=== PATIENT | female | born 1965 | race Caucasian/White ===

== ENCOUNTER 2019-06-22 11:10 | Emergency (ER) | payer OTHER, SELFPAY ==
[~2019-06-22] VITALS: Ht 172.7 cm; Wt 67.9 kg
[2019-06-22] MEDS ORDERED: LORazepam 1MG TABLET PO ONE (11:30)
[2019-06-22] MEDS ORDERED: LORazepam 1MG TABLET ONE (11:43)
--- NOTE | 2019-06-22 11:49 | NUR ---
PT RESTING IN [facility], MEDICATED PER MAR. FAMILY AT BEDSIDE. URINE WALKED TO LAB. AWAITING LAB RESULTS. CALL LIGHT WITHIN REACH.
[2019-06-22 11:52] LABS: BASOPHILS # (AUTO) 0.02 x10^3/uL (0-0.1); BASOPHILS % (AUTO) 0 % (0-1); EOSINOPHILS # (AUTO) 0.02 x10^3/uL (0-0.4); EOSINOPHILS % (AUTO) 0 % (1-7); LYMPHOCYTES # (AUTO) 1.31 x10^3/uL (1-3.4); LYMPHOCYTES % (AUTO) 12 % (22-44); MD NO; MEAN CORPUSCULAR HEMOGLOBIN 30.4 pg (27.0-34.8); MEAN CORPUSCULAR HGB CONC 33.2 g/dL (32.4-35.8); MEAN CORPUSCULAR VOLUME 91.7 fL (80-100); MEAN PLATELET VOLUME 7.7 fL (7.4-10.4); MONOCYTES # (AUTO) 0.46 x10^3/uL (0.2-0.8); MONOCYTES % (AUTO) 4 % (2-9); NEUTROPHILS # (AUTO) 9.42 x10^3/uL (1.8-6.8); NEUTROPHILS % (AUTO) 84 % (42-75); PLATELET COUNT 359 x10^3/uL (130-400); RED BLOOD COUNT 5.02 x10^6/uL (3.82-5.3); RED CELL DISTRIBUTION WIDTH 16.4 % (9.6-15.2)
[2019-06-22 12:00] LABS: HCG UR SG 1.018 (1.003-1.030)
[2019-06-22 12:03] LABS: ALBUMIN 3.9 g/dL (3.4-5.0); ANION GAP 8 mmol/L (5-15); CHLORIDE 112 mmol/L (98-107); CREATININE 0.57 mg/dL (0.55-1.02); SALICYLATE LEVEL 4.6 mg/dL (2.8-20.0)
[2019-06-22 12:10] LABS: AMPHETAMINE SCREEN, URINE Negative (Negative); BARBITURATE SCREEN, URINE Negative (Negative); BENZODIAZEPINE SCREEN, URINE Negative (Negative); CANNABINOID SCREEN, URINE Positive (Negative); COCAINE SCREEN, URINE Negative (Negative); METHADONE SCREEN, URINE Negative (Negative); OPIATE SCREEN, URINE Negative (Negative)
--- NOTE | 2019-06-22 13:03 | NUR ---
RN RETURNED FROM BREAK, PSYCH SAW PT AND PT PLACED ON LEGAL HOLD FOR SI. PT MOVED TO ROOM 41 WITH SITTER. REPORT TO ELLEN ALBERT WHO WILL ASSUME CARE OF PT AT THIS TIME. ALL BELONGINGS REMOVED AND PLACED IN PSYCH LOCKER BY FRED Spoonity.
--- NOTE | 2019-06-22 13:23 | NUR ---
1ST CONTACT C PT. RESTING ON CART. A&04. CALM & COOPERATIVE. FAMILY AT BS. GIVEN WATER & BLANKET, AWARE LUNCH TRAY ORDERED. DENIES ANY OTHER NEEDS. WILL CTM.
--- NOTE | 2019-06-22 13:51 | NUR ---
THROUGHPUT: PT ON LEGAL HOLD, MEDICALLY CLEARED, NO INSURANCE. FAXED MEDICALS TO [facility]. RECEIVED FAX CONFIRMATION
[2019-06-22] MEDS ORDERED: QUETIAPINE 25MG TABLET ONE (13:55)
[2019-06-22] MEDS: QUETIAPINE 25MG TABLET PO SCH (13:56)
--- NOTE | 2019-06-22 14:06 | NUR ---
GIVEN LUNCH TRAY. JULIUS FAMILY MEMBERS AT BS. CALM & COOPERATIVE. WILL CTM.
--- NOTE | 2019-06-22 14:09 | NUR ---
SITTER OUTSIDE OF ROOM
--- NOTE | 2019-06-22 15:23 | NUR ---
PT BECOMING ESPECIALLY NEEDY AFTER FAMILY LEAVING, AND WANDERING OUT INTO [place] [address]. REQUESTNG TO USE THE PHONE & WANTING SHOWER... ATTEMPTING TO EXPLAIN PROCE3
--- NOTE | 2019-06-22 15:33 | NUR ---
PT APPEARS TO BE SLEEPING, ON CART. RR EVEN NON LABORED. SITTER OUTSIDE OF ROOM. WILL CTM.
--- NOTE | 2019-06-22 15:58 | NUR ---
PT REQUESTING TO SEE MD, IN PARTICULAR, WANTS AN IV FOR HER JOINT PAIN & DRY SKIN. PT ENCOURAGED TO DRINK WATER.
--- NOTE | 2019-06-22 17:23 | NUR ---
DIET TRAY ORDERED. REQUESTING MOTRIN/TYL FOR H/A.
[2019-06-22] MEDS ORDERED: IBUPROFEN 600 MG TABLET ONE (17:27)
[2019-06-22] MEDS ORDERED: IBUPROFEN 600 MG TABLET PO ONE (17:30)
--- NOTE | 2019-06-22 18:04 | NUR ---
GIVEN DINNER TRAY & WATER & EXTRA BLANKET. DENIES ANY OTHER NEEDS. CALM & COOPERATIVE. SITTER REMAINS OUTSIDE OF ROOM. WILL CTM.
--- NOTE | 2019-06-22 18:26 | NUR ---
PT TO END OF HALLWAY TO USE PHONE, STEADY GAIT. INSIGHT OF SITTER.
--- NOTE | 2019-06-22 19:09 | NUR ---
PT UP TO PHONE C STEADY GAIT, REMAINS IN VIEW OF SITTER. DENIES ANY NEEDS. AMBULATORY BACK TO ROOM, WATCHING TV. DENIES ANY NEEDS. WILL CTM.
--- NOTE | 2019-06-22 20:33 | NUR ---
PT GIVEN WATER & COFFEE. DENIES ANY OTHER NEEDS. VSS. SITTER REMAINS OUTSIDE OF ROOM.
[2019-06-22] MEDS: QUETIAPINE 200 MG TABLET PO SCH (20:35)
--- NOTE | 2019-06-22 20:50 | NUR ---
FAMILY BROUGHT PT BODY WASH, LOTION, UNDERWEAR FOR LATER USAGE..TO BE PLACED IN PTS BELONGING BAG IN LOCKER. ALL OTHER ITEMS THEY TILA TO BE TAKEN HOME. PT ALSO GIVEN OUTSIDE FOOD. CALM & APPROPRIATE C FAMILY AT BS. SITTER REMAINS OUTSIDE OF ROOM. WILL CTM.
--- NOTE | 2019-06-22 21:24 | NUR ---
PT STATES SHE SOILED HERSELF. GIVEN CLEAN GOWN & SOCKS. FAMILY LEFT PT C FUZZY SWEATER, PT INFORMED SHE IS NOT TO HAVE ANY BELONGINS, PLACED IN BAG & TIED TOGETHER C OTHER BELONGINGS IN LOCKER. TOTAL 3 BAGS.
--- NOTE | 2019-06-22 23:27 | NUR ---
PT RESTING ON CART, WATCHING TV. RR EVEN NON LABORED. PT C/O RLQ PAIN. N/V/D. PT TOLERATING FOOD & DRINKS WELL. SITTER REMAINS OUTSIDE OF ROOM. WILL CTM.
--- NOTE | 2019-06-23 00:09 | NUR ---
PT RESTING CALMLY WATCHING TV,, ROOM SECURED, SITTER AT DOORWAY FOR CONTINOUS MONITORING.
--- NOTE | 2019-06-23 00:57 | NUR ---
PT RESTING WITH EYES CLOSED, NAD, EQUAL CHEST RISE/FALL OBSERVED, SITTER AT DOORWAY FOR CONTINOUS MONITORING.
--- NOTE | 2019-06-23 01:58 | NUR ---
PT RESTING ON GURNEY WITH EYES CLOSED, NADN, EQUAL CHEST RISE/FALL OBSERVED, ROOM SECURED, SITTER AT DOORWAY FOR CONTINOUS MONITORING.
--- NOTE | 2019-06-23 03:02 | NUR ---
PT RESTING WITH EYES CLOSED, REPOSITIONED SELF IN BED, EQUAL CHEST RISE/FALL OBSERVED, SITTER AT DOORWAY FOR CONTINOUS MONITORING.
--- NOTE | 2019-06-23 04:08 | NUR ---
PT RESTING WITH EYES CLOSED, NAD, REPOSITIONED SELF, NOTED EQUAL CHEST RISE/FALL, SITTER AT DOORWAY FOR CONTINOUS MONITORING.
--- NOTE | 2019-06-23 04:59 | NUR ---
PT RESTING CALMLY, NADN, EQUAL CHEST RISE/FALL OBSERVED, SITTER AT DOORWAY FOR CONTINOUS MONITORING
--- NOTE | 2019-06-23 06:04 | NUR ---
PT RESTING CALMY, REPOSITIONED SELF, EQUAL CHEST RISE/FALL OBSERVED, SITTER AT DOORWAY FOR CONTINOUS MONITORING.
--- NOTE | 2019-06-23 06:51 | NUR ---
RECEIVED REPORT FROM EMMA ALBERT, PLAN OF CARE DISCUSSED.
--- NOTE | 2019-06-23 07:08 | NUR ---
PT SLEEPING, RESP EVEN AND UNLABORED, BREAKFAST ORDERED, ROOM SECURED, SITTER AT DOOR.
--- NOTE | 2019-06-23 07:47 | NUR ---
BREAKFAST GIVEN, PT PLACED ON HOSPTIAL BED. PT REQUESTED WATER AND COFFEE WELL, THIS RN PROVIDED. PT TEARFUL AT THIS TIME, INCREASE EMOTIONAL SUPPORT GIVEN. ROOM REMAINS SECURED, SITTER AT DOOR
[2019-06-23] MEDS ORDERED: QUETIAPINE 25MG TABLET ONE (08:05)
[2019-06-23] MEDS: QUETIAPINE 25MG TABLET PO SCH (08:07)
[2019-06-23] MEDS ORDERED: IBUPROFEN 600 MG TABLET ONE (08:25)
[2019-06-23] MEDS ORDERED: IBUPROFEN 600 MG TABLET PO ONE (08:30)
--- NOTE | 2019-06-23 08:32 | NUR ---
PT ATE 100% BREAKFAST REQUESTED MOTRIN FOR ALL OVER PAIN, RECEIVED ORDER AND MEDICATED PER SEP. PT VERBALIZED NO OTHER NEEDS AT THIS TIME
--- NOTE | 2019-06-23 09:41 | NUR ---
PT SLEEPING, RESP EVEN AND UNLABORED, ROOM REMAINS SECURED, SITTER AT DOOR.
--- NOTE | 2019-06-23 11:34 | NUR ---
PT UP TO THE PHONE IN HALLWAY CALLING BACK WHO CALLED 20MIN WHILE PATIENT WAS SLEEPING
--- NOTE | 2019-06-23 12:08 | NUR ---
LUNCH MEAL PROVIDED, PT UP TO BATHROOM, ROOM REMAINS SECURED. SITTER AT DOOR
--- NOTE | 2019-06-23 14:04 | NUR ---
PT AT 100% BREAKFAST, RESTING, ROOM REMAINS SECURED. SITTER AT DOOR
--- NOTE | 2019-06-23 15:28 | NUR ---
PT SLEEPING, RESP EVEN AND UNLABORED, SITTER AT DOOR, ROOM REMAINS SECURED
--- NOTE | 2019-06-23 17:40 | NUR ---
MEAL PROVIDED, SON AT BS. PT COOPERATIVE, ROOM SECURED AND SITTER AT DOOR
--- NOTE | 2019-06-23 18:46 | NUR ---
REPORT TO KATLIN ALBERT, PLAN OF CARE DISCUSSED
--- NOTE | 2019-06-23 20:00 | NUR ---
PT RESTING ON GURNEY. RESPIRATIONS EVEN AND UNLABORED. SITTER AT DOORWAY FOR FREQUENT CHECKS.
[2019-06-23] MEDS ORDERED: QUETIAPINE 100MG TABLET ONE (21:29)
[2019-06-23] MEDS: QUETIAPINE 200 MG TABLET PO SCH (21:42)
--- NOTE | 2019-06-23 21:46 | NUR ---
PT MEDICATED PER EMAR. PT WITH NO REQUESTS AT THIS TIME. SITTER AT DOORWAY.
--- NOTE | 2019-06-24 00:17 | NUR ---
PT RESTING ON GURNEY WITH EYES CLOSED. RESPIRATIONS EVEN AND UNLABORED. SITTER AT DOORWAY FOR FREQUENT CHECKS.
--- NOTE | 2019-06-24 03:07 | NUR ---
PT RESTING ON GURNEY WITH EYES CLOSED. RESPIRATIONS EVEN AND UNLABORED. SITTER AT DOORWAY FOR FREQUENT CHECKS.
--- NOTE | 2019-06-24 06:16 | NUR ---
PT RESTING ON GURNEY WITH EYES CLOSED. RESPIRATIONS EVEN AND UNLABORED. SITTER AT DOORWAY FOR FREQUENT CHECKS
--- NOTE | 2019-06-24 06:52 | NUR ---
report to kiet pinzon
--- NOTE | 2019-06-24 07:05 | NUR ---
REPORT RECIEVED FROM DESTINI RN, ASSUMED CARE OF PT. AT THIS TIME PT IS RESTING ON GURNEY ASLEEP, VISIBLE CHEST RISE AND FALL NOTED, NAD AT THIS TIME
[2019-06-24] MEDS: QUETIAPINE 25MG TABLET PO SCH ×2 (07:54→12:14)
--- NOTE | 2019-06-24 07:59 | NUR ---
PT GIVEN BREAKFAST TRAY. MEDICATED PER SEP. SI PRECAUTIONS ARE IN PLACE, NO OTHER NEEDS AT THIS TIME
--- NOTE | 2019-06-24 10:16 | NUR ---
PT RESTING ON BED IN RM AT THIS TIME, VISIBLE CHEST RISE AND FALL NOTED. NAD NOTED
--- NOTE | 2019-06-24 11:46 | NUR ---
PT AMULATED TO PHONE IN [place], ALLOWED PT TO MAKE PHONE CALL, PT WITH STEADY GAIT. LUNCH TRAYS ORDERED
[2019-06-24] MEDS ORDERED: QUETIAPINE 25MG TABLET ONE (12:12)
[2019-06-24] MEDS ORDERED: IBUPROFEN 600 MG TABLET ONE ×2 (12:12→19:55)
[2019-06-24] MEDS ORDERED: IBUPROFEN 200 MG TABLET ONE (12:16)
[2019-06-24] MEDS ORDERED: IBUPROFEN 200 MG TABLET PO ONE ×2 (12:30→20:00)
--- NOTE | 2019-06-24 12:43 | NUR ---
BREAK RN NOTE: PT PROVIDED WITH SI MEAL TRAY. VS REASSESSED. PT REPORTS SHE HAS HAD A HEADACHE SINCE THIS AM, STATES SHE HAS HX HEADACHES, THIS FEELS LIKE A TYPICAL HEADACHE. PT IS A&OX4, RESPS EVEN AND UNLABORED. MD AHN NOTIFIED, MD ORDERED MOTRIN. PT MEDICATED PER EMAR, TOLERATED WELL. AT BEDSIDE WITH PT OK, PT NOTES IS A THERAPEUTIC PRESENCE. PT AND UPDATED WITH POC. SITTER MONITORING FROM [facility] FOR [facility], ROOM REMAINS SECURE. REPORT GIVEN TO PRIMARY RN MEGHAN.
[2019-06-24] MEDS ORDERED: MAGNESIUM CITRATE 300ML ORAL SOL PO ONE (13:30)
[2019-06-24] MEDS ORDERED: MAGNESIUM CITRATE 300ML ORAL SOL ONE (13:35)
--- NOTE | 2019-06-24 13:54 | NUR ---
PT STILL UNABLE TO HAVE BM. PT REQUESTING LAXATIVE, ORDER RECIEVED BY MARIANGEL, PT MEDICATED PER SEP. GIVEN WARM BLANKET FOR COMFORT, NO OTHER NEEDS AT THIS TIME
--- NOTE | 2019-06-24 15:59 | NUR ---
PT CONTINUES TO REST ON BED, DENIES NEEDS AT THIS TIME, DIET TRAY ORDERED
--- NOTE | 2019-06-24 17:59 | NUR ---
PT GIVEN DINNER TRAY. NO OTHER NEEDS STATED AT THIS TIME. NAD. SI PRECAUTIONS REMAIN IN PLACE.
--- NOTE | 2019-06-24 18:00 | NUR ---
PT GIVEN DINNER TRAY. NO OTHER NEEDS EXPRESSED, NAD NOTED. SI PRECAUTIONS REMAIN IN PLACE
--- NOTE | 2019-06-24 18:08 | NUR ---
REPORT CALLED TO CENTRALIZED TRAFFIC CONTROL OPERATOR
--- NOTE | 2019-06-24 19:50 | NUR ---
pt requesting motrin for headache, erp updated and will place order
[2019-06-24] MEDS ORDERED: QUETIAPINE 100MG TABLET ONE (19:55)
--- NOTE | 2019-06-24 19:59 | NUR ---
late entry 1914- pt resting in bed watching tv, denies needs at thsi time, sitter at doorway for continous monitoring
[2019-06-24] MEDS: QUETIAPINE 200 MG TABLET PO SCH (20:02)
--- NOTE | 2019-06-24 20:17 | NUR ---
pt stated she currently has no si/hi thoughts. pt medicated per sep. pt up to rr with steady gait, incontinent of bm, assisted pt with cleaning bathroom toliet and floor, provided pt with cleaning supplies for self care, pt denies further needs at thsi time. sitter at doorway for continous monitoring
--- NOTE | 2019-06-24 21:26 | NUR ---
pt sitting up in bed watching tv, denies needs, sitter at doorway for continous monitoring
--- NOTE | 2019-06-24 22:17 | NUR ---
PT RESTING IN BED WITH EYES CLOSED, NADN, RESPIRATIONS EVEN AND UNLABORED, ROOM REMAINS SECURED, SITTER IN [place] FOR MONITORING.
--- NOTE | 2019-06-24 23:01 | NUR ---
PT RESTING IN BED WITH EYES CLOSED, NAD, RESPIRATIONS EVEN AND UNLABORED, SITTER IN [place] FOR MONITORING.
--- NOTE | 2019-06-25 | NUR ---
PT RESTING ON GURNEY WITH EYES CLOSED, NADN, RESPIRATIONS EVEN AND UNLABORED, SITTER IN [place] FOR MONITORING.
--- NOTE | 2019-06-25 01:17 | NUR ---
PT RESTING ON GURNEY WITH EYES CLOSED, RESPIRATIONS EVEN AND UNLABORED, SITTER IN [place] FOR MONITORING.
--- NOTE | 2019-06-25 02:29 | NUR ---
FLOAT RN: PT RESTING IN ROOM. REGULAR RESP. NO ACUTE DISTRESS NOTED. WILL CONTINUE TO MONITOR WHILE PRIMARY RN IS ON BREAK.
--- NOTE | 2019-06-25 02:57 | NUR ---
PT RESTING IN BED WITH EYES CLOSED, NAD, EQUAL CHEST RISE/FALL OBSERVED, SITTER IN [place] FOR CONTINOUS MONITORING.
--- NOTE | 2019-06-25 04:15 | NUR ---
PT RESTING IN BED WITH EYES CLOSED, NAD, RESPIRATIONS EVEN AND UNLABORED, SITTER IN [place] FOR CONTINOUS MONITORING.
--- NOTE | 2019-06-25 05:07 | NUR ---
PT RESTING IN BED WITH EYES CLOSED, REPOSITIONED SELF IN BED, EQUAL CHEST RISE/FALL OBSERVED, SITTER IN [place] FOR CONTINOUS MONITORING.
--- NOTE | 2019-06-25 06:25 | NUR ---
PT RESTING IN BED WITH EYES CLOSED, NAD, RESPIRATIONS EVEN AND UNLABORED, SITTER IN [place] FOR CONTINOUS MONITORING.
--- NOTE | 2019-06-25 07:58 | NUR ---
LATE ENTRY 0700. SBAR RPT REC'D FROM BETY VARELA AND ASSUMED PT CARE. PT CURRENTLY SLEEPING, RESP EVEN NON-LABORED. SITTER AT DOORWAY WITH PT IN VIEW.
[2019-06-25] MEDS ORDERED: QUETIAPINE 25MG TABLET ONE ×2 (08:36→12:10)
[2019-06-25] MEDS: QUETIAPINE 25MG TABLET PO SCH ×2 (08:37→12:12)
--- NOTE | 2019-06-25 08:38 | NUR ---
BREAKFAST TRAY PROVIDED AND PT ATE 100%. PT MED WITH AM MEDS NOTED AND PT AMBULATED TO PHONE IN HALLWAY TO CALL HER . SITTER IN HALLWAY WITH PT IN SIGHT.
--- NOTE | 2019-06-25 11:58 | NUR ---
PT OOB AND AMBULATE TO SHOWER ROOM. CLEAN GOWN AND SOCKS PROVIDED. SITTER WITH SHOWER ROOM IN VIEW. COMPLETE LINEN CHANGE OF BED.
[2019-06-25] MEDS ORDERED: IBUPROFEN 200 MG TABLET PO ONE (12:30)
--- NOTE | 2019-06-25 12:30 | NUR ---
PTS IN ROOM, PT GIVEN LUNCH TRAY AND MED NOTED. NAD NOTED.
--- NOTE | 2019-06-25 13:07 | NUR ---
LATE ENTRY FOR 1220 PT COMPLETED SHOWER, WHEN THIS RN ENTERED SHOWER ROOM PT RPT THAT SHE HAD FALLEN ON HER LEFT HIP. DENIED HITTING HER HEAD. PT AMBULATORY WITH STEADY GAIT BACK TO ROOM. HAD PT CHANGE INTO A YELLOW GOWN, SOCKS AND FALLS RISK BAND PLACED. DR. MULLEN INFORMED, ORDER REC'D FOR IBUPROFEN
[2019-06-25] MEDS ORDERED: IBUPROFEN 600 MG TABLET ONE (13:09)
--- NOTE | 2019-06-25 14:28 | NUR ---
rec report pt resting cooperative sitter in the [place] reviewed prior fall w the sitter required that pt not get out of bed
--- NOTE | 2019-06-25 17:25 | NUR ---
MEAL GIVEN FAMILY REMAINS AT BS SITTER WATCHING THE PT
[2019-06-25] MEDS: QUETIAPINE 200 MG TABLET PO SCH (21:00)
[2019-06-25] MEDS ORDERED: QUETIAPINE 100MG TABLET ONE (21:42)
--- NOTE | 2019-06-26 01:15 | NUR ---
pt sleeping in bed with sitter bed side, si precautions active. pt has no needs at this time.
--- NOTE | 2019-06-26 03:51 | NUR ---
pt sleeping in bed with sitter bed side, si precautions active. pt has no needs at this time.
--- NOTE | 2019-06-26 06:06 | NUR ---
pt sleeping in bed with sitter bed side, si precautions active. pt has no needs at this time.
--- NOTE | 2019-06-26 07:27 | NUR ---
LATE ENTRY 0700, SBAR RPT REC'D FROM BETY VASQUEZ. PT RESTING WITH EYES CLOSED, RESP EVEN NON-LABORED. SITTER AT DOORWAY WITH PT IN VIEW.
[2019-06-26] MEDS ORDERED: IBUPROFEN 600 MG TABLET ONE (07:31)
[2019-06-26] MEDS ORDERED: QUETIAPINE 25MG TABLET ONE (07:31)
[2019-06-26] MEDS: QUETIAPINE 25MG TABLET PO SCH ×2 (07:32→13:20)
[2019-06-26] MEDS: IBUPROFEN 600 MG TABLET PO PRN ×2 (07:40→16:00)
--- NOTE | 2019-06-26 08:31 | NUR ---
LATE ENTRY 0800, BREAKFAST TRAY PROVIDED AND PT MED NOTED. PT C/O LEFT HIP, NO EDEMA OR ECCHYMOSIS NOTED. SITTER AT DOORWAY WITH PT IN VIEW.
--- NOTE | 2019-06-26 13:30 | NUR ---
late entry d/t patient care: report received from BETY May. pt sitting on hospital bed. sitter monitoiring from [facility].
--- NOTE | 2019-06-26 14:30 | NUR ---
late entry d/t patient care: report given to BETY Munoz. Pt is conversing with who is at bedside. sitter monitoring from [facility] for safety.
--- NOTE | 2019-06-26 15:47 | NUR ---
Patient resting comfortably. Respirations even and unlabored. Sitter outside for direct observation.
--- NOTE | 2019-06-26 16:58 | NUR ---
Patient resting comfortably. Respirations even and unlabored. Sitter outside for direct observation.
--- NOTE | 2019-06-26 19:11 | NUR ---
Report given to BETY Matthews. All questions addressed.
[2019-06-26] MEDS: QUETIAPINE 200 MG TABLET PO SCH (21:08)
--- NOTE | 2019-06-27 00:02 | NUR ---
pt sleeping in bed with sitter bed side, si precautions active. pt has no needs at this time.
--- NOTE | 2019-06-27 03:52 | NUR ---
pt sleeping in bed with sitter bed side, si precautions active. pt has no needs at this time.
--- NOTE | 2019-06-27 06:21 | NUR ---
pt sleeping in bed with sitter bed side, si precautions active. pt has no needs at this time.
--- NOTE | 2019-06-27 07:04 | NUR ---
REPORT RECIEVED FROM DESTINI RN. PT RESTING ON BED AT THIS TIME IN SECURE RM, NAD NOTED, BREAKFAST TRAYS ORDERED
[2019-06-27] MEDS: QUETIAPINE 25MG TABLET PO SCH (08:12)
--- NOTE | 2019-06-27 08:12 | NUR ---
PT GIVEN BREAKFAST TRAY, MEDICATED PER SEP, VSS. NO OTHER NEEDS AT THIS TIME
[2019-06-27] MEDS: IBUPROFEN 600 MG TABLET PO PRN (09:25)
--- NOTE | 2019-06-27 10:41 | NUR ---
PT RESTING ON BED WITH AT BEDSIDE PER PT REQUEST. PT MEDICATED FOR HIP PAIN D/T FALL PT HAD DURING HOSPITAL STAY ON WEDNESDAY. NO OTHER NEEDS AT THIS TIME. SI PRECAUTIONS IN PLACE
[2019-06-27] MEDS ORDERED: HYDROXYZINE PAMOATE 25MG CAP PO ONE (12:00)
--- NOTE | 2019-06-27 12:26 | NUR ---
PT GIVEN LUNCH MEAL. REMAINS AT BEDSIDE, SI PRECAUTIONS IN PLACE. JANESSA FLETCHER ORDERED NEW MEDICATIONS, PT ANXIOUS TO RECIEVE THEM, EXPLAINED REQUEST WAS SENT AND WILL ADMIN ABLE
[2019-06-27] MEDS: OXCARBAZEPINE 150 MG TABLET PO ONE ×2 (12:32→13:55)
[2019-06-27 12:55] LABS: T4 (THYROXINE) 7.2 mcg/dL (4.8-13.9)
--- NOTE | 2019-06-27 14:01 | NUR ---
PT RESTING ON BED, DENEIS NEEDS AT THIS TIME, SI PRECAUTIONS REMAIN IN PLACE, NAD NOTED
[2019-06-27] MEDS ORDERED: HYDROXYZINE PAMOATE 25MG CAP PO PRN (16:00)
--- NOTE | 2019-06-27 17:13 | NUR ---
PT RESTING ON BED, AT BEDSIDE, PT CALM. DINNER TRAY ORDERED, PT DENIES NEEDS AT THIS TIME
--- NOTE | 2019-06-27 18:58 | NUR ---
PT RESTING ON HOSPITAL BED. AT BEDSIDE. PT STATES SHE ALREADY HAD DINNER. NO REQUESTS AT THIS TIME. SITTER IN [place] FOR FREQUENT CHECKS.
--- NOTE | 2019-06-27 18:58 | NUR ---
REPORT FROM BETY CHRISTIANSON
--- NOTE | 2019-06-27 19:05 | NUR ---
Call from [facility] requesting patients continuation. Continuation faxed. Conformation received. Per their report patient is next on the list to be picked up by [facility] and should hopefully go there tomorrow.
[2019-06-27] MEDS ORDERED: QUETIAPINE 100MG TABLET PO SCH (21:00)
--- NOTE | 2019-06-27 21:05 | NUR ---
PT RESTING ON HOSPITAL BED. medicated per emar. NO REQUESTS AT THIS TIME. SITTER IN [place] FOR FREQUENT CHECKS.
--- NOTE | 2019-06-27 22:32 | NUR ---
PT RESTING ON HOSPITAL BED. NO REQUESTS AT THIS TIME. SITTER IN [place] FOR FREQUENT CHECKS.
--- NOTE | 2019-06-28 | NUR ---
pt resting on hospital bed with eyes closed, respiraitons even and unlabored. sitter at doorway for frequent checks.
--- NOTE | 2019-06-28 02:00 | NUR ---
pt resting on hospital bed with eyes closed, respiraitons even and unlabored. sitter at doorway for frequent checks.
--- NOTE | 2019-06-28 04:00 | NUR ---
pt resting on hospital bed with eyes closed, respiraitons even and unlabored. sitter at doorway for frequent checks.
--- NOTE | 2019-06-28 05:09 | NUR ---
pt resting on hospital bed with eyes closed, respiraitons even and unlabored. sitter at doorway for frequent checks.
--- NOTE | 2019-06-28 06:35 | NUR ---
pt resting on hospital bed with eyes closed, respiraitons even and unlabored. sitter at doorway for frequent checks.
--- NOTE | 2019-06-28 06:37 | NUR ---
ed diet security tray ordered
--- NOTE | 2019-06-28 06:53 | NUR ---
REPORT TAKEN FROM BETY SANCHEZ. PT RESTING ON HOSPITAL BED. RESPIRATIONS EVEN AND UNLABORED. ROOM SECURE. SITTER AT BEDSIDE. BREAKFAST TRAY HAS BEEN ORDERED.
[2019-06-28 07:49] VITALS: BP 125/78
--- NOTE | 2019-06-28 07:50 | NUR ---
PT MEDICATED PER EMAR. VSS. RESTING ON HOSPITAL BED. NADN. DENIES NEEDS AT THIS TIME. AWARE THAT BREAKFAST IS COMING. CURRENTLY DENIES SI/HI.
[2019-06-28] MEDS: IBUPROFEN 600 MG TABLET PO PRN (08:38)
--- NOTE | 2019-06-28 08:39 | NUR ---
PT REQUESTING IBUPROFEN. MEDICATED PER EMAR. STATES SHE WAS ABLE TO AMBULATE TO BATHROOM TO VOID THIS MORNING. STATES SHE HAS NOT YET HAD A BM. THIS RN ORDERED PRUNE JUICE FOR PT AT THIS TIME. PT NOW RESTING ON HOSPITAL BED. SITTER AT BEDSIDE ROOM SECURE.
--- NOTE | 2019-06-28 08:41 | NUR ---
PT PROVIDED WITH PRUNE JUICE.
--- NOTE | 2019-06-28 08:59 | NUR ---
PT'S AT BEDSIDE FOR VISIT NOW.
[2019-06-28] MEDS ORDERED: OXCARBAZEPINE 150 MG TABLET PO SCH (09:00)
--- NOTE | 2019-06-28 09:35 | NUR ---
PT RESTING ON HOSPITAL BED. NADN. AT BEDSIDE. SITTER AT BEDSIDE. ROOM SECURE.
--- NOTE | 2019-06-28 10:13 | NUR ---
THROUGHPUT: PT ACCEPTED BY [facility] BY DR DE LOS SANTOS, PER FREDDIE ALBERT, TO BE TRANSFERRED ~1300 TODAY.
--- NOTE | 2019-06-28 10:15 | NUR ---
REPORT GIVEN TO BETY FRAZIER AT [facility]. PT TO BE PICKED UP AT 1300.
--- NOTE | 2019-06-28 10:51 | NUR ---
THROUGHPUT: [facility] TO TRANSPORT PT TO [facility] AT 1300 TODAY.
--- NOTE | 2019-06-28 10:59 | NUR ---
LUNCH TRAY HAS BEEN ORDERED FOR PT.
--- NOTE | 2019-06-28 11:32 | NUR ---
PT PROVIDED WITH GOWN AND BLANKET THAT SHE CAN LEAVE WITH. PT CHANGING NOW.
--- NOTE | 2019-06-28 12:11 | NUR ---
TASK RN: LUNCH TRAY PROVIDED. FAMILY AT BEDSIDE. PT BELONGINGS IN HALLWAY IN FRONT OF ROOM FOR TRANSPORT. BELONGINGS CONSIST OF 3 BAGS THAT ARE LABELED AND TIED TOGETHER.
== END 2019-06-28 13:12 ==
LOC: ED 13:15
DX: F33.9 Major depressive disorder, recurrent, unspecified (principal); R45.851 Suicidal ideations; F41.1 Generalized anxiety disorder
CPT/HCPCS: 36415; 80048; 80307; 81025; 82040; 84436; 84481; 85025; 93005; 99285